=== PATIENT | male | born 1980 ===

== ENCOUNTER 2017-04-06 12:45 | Emergency (ER) | payer SELFPAY ==
[2017-04-06 12:55] VITALS: BP 108/71; PULSE 80; RESP 18; TEMP 98; O2SAT 100
--- NOTE | 2017-04-06 13:09 | ED PDOC ---
HPI: Back Time Seen by Provider: 04/06/17 12:49 Chief Complaint (Nursing): Back Pain Chief Complaint (Provider): Back Pain History Per: Patient History/Exam Limitations: no limitations Current Symptoms Are (Timing): Still Present Additional Complaint(s): Shaan Woodard, a 36 year old male, presents to the ED complaining of back pain. The patient states that he was lifting something up a flight of stairs when the pain began. He states that the pain is centralized and radiates down his left leg. Past Medical History Reviewed: Historical Data, Nursing Documentation, Vital Signs Vital Signs: Last Vital Signs Temp 98 F 04/06/17 12:52 Pulse 80 04/06/17 12:52 Resp 18 04/06/17 12:52 BP 108/71 04/06/17 12:52 Pulse Ox 100 04/06/17 12:52 - Medical History PMH: No Chronic Diseases - Surgical History Surgical History: No Surg Hx - Family History Family History: States: Unknown Family Hx - Social History Current smoker - smoking cessation education provided: No Alcohol: Social Drugs: Denies - Home Medications Home Medications: Ambulatory Orders Medication Instructions Recorded Cyclobenzaprine [Cyclobenzaprine 10 mg PO Q8H #20 tab 04/06/17 HCl] Ibuprofen [Motrin Tab] 800 mg PO Q6H PRN #20 tab 04/06/17 - Allergies Allergies/Adverse Reactions: Allergies Allergy/AdvReac Type Severity Reaction Status Date / Time No Known Allergies Allergy Verified 04/06/17 12:52 Review of Systems Musculoskeletal: Positive for: Back Pain (Back pain radiating down left leg.) Physical Exam - Reviewed Nursing Documentation Reviewed: Yes Vital Signs Reviewed: Yes - Physical Exam Appears: Positive for: Non-toxic, No Acute Distress Head Exam: Positive for: NORMAL INSPECTION Skin: Positive for: Normal Color, Warm, Dry Eye Exam: Positive for: Normal appearance, EOMI, PERRL Cardiovascular/Chest: Positive for: Regular Rate, Rhythm, Chest Non Tender. Negative for: Tachycardia Respiratory: Positive for: Normal Breath Sounds. Negative for: Wheezing, Respiratory Distress Back: Negative for: Vertebral Tenderness (no midline tenderness) Neurologic/Psych: Positive for: Alert, Oriented, Gait - ECG O2 Sat by Pulse Oximetry: 100 (RA) Pulse Ox Interpretation: Normal Medical Decision Making Medical Decision Makin Initial Impression: 36 year old male presenting with back pack radiating down left leg Initial Plan: * Flexeril 10mg PO * Toradol 60mg IM * Reevaluation Pt reports feeling better on re-evaluation. X-ray without acute abnormalities, height and spacing maintained. Scribe Attestation Documented by Laura Ramsey acting as a scribe for Minnie Bonner PA-C. Scribe Attestation All medical record entries made by the Scribe were at my direction and personally dictated by me. I have reviewed the chart and agree that the record accurately reflects my personal performance of the history, physical exam, medical decision making, and the department course for this patient. I have also personally directed, reviewed, and agree with the discharge instructions and disposition. Disposition - Clinical Impression Clinical Impression: Back pain - Patient ED Disposition Is Patient to be Admitted: No Counseled Patient/Family Regarding: Diagnosis, Need For Followup, Rx Given - Disposition Referrals: [facility] [Outside] Disposition: Routine/Home Disposition Time: 14:23 Condition: GOOD Prescriptions: Cyclobenzaprine [Cyclobenzaprine HCl] 10 mg PO Q8H #20 tab Ibuprofen [Motrin Tab] 800 mg PO Q6H PRN #20 tab PRN Reason: Pain Instructions: Back Pain (ED) Forms: [facility] ED School/Work Excuse
--- NOTE | 2017-04-06 15:14 | RAD ---
PROCEDURE: Radiographs of the Lumbar Spine. HISTORY: Midline pain COMPARISON: No prior. FINDINGS: BONES: There is mild levocurvature in the lumbar spine which could be positional. There is normal alignment of the lumbar vertebral bodies. Lumbar lordosis is maintained. Vertebral bodies are normal in height. Bone mineralization is normal. There is no acute fracture, spondylolysis or spondylolisthesis. DISC SPACES: The disc heights are maintained. OTHER FINDINGS: There are no pathologic soft tissue calcifications. Both sacroiliac joints are normal. There is large amount of stool in the colon. IMPRESSION: 1. No acute fracture, spondylolysis or spondylolisthesis. 2. Constipation.
== END 2017-04-06 14:26 | disposition home or self-care (01) ==
LOC: H.ER 12:45
DX: M54.9 Dorsalgia, unspecified (principal)

== ENCOUNTER 2018-12-22 21:44 | Emergency (ER) | payer OTHER, SELFPAY ==
[2018-12-22 21:53] VITALS: TEMP 98.2
[2018-12-22 22:44] LABS: BASO % 0.3 % (0.0-2.0); EOS # 0.1 K/uL (0.0-0.7); EOS % 1.9 % (0.0-4.0); HEMOGLOBIN 13.8 g/dL (12.0-18.0); LYMPH # 2.5 K/uL (1.0-4.3); LYMPH % 40.7 % (20.0-40.0); MEAN CELL VOLUME 86.7 fl (80.0-94.0); MEAN CORPUSCULAR HEMOGLOBIN 29.6 pg (27.0-31.0); MEAN CORPUSCULAR HGB CONC 34.1 g/dL (33.0-37.0); MEAN PLATELET VOLUME 7.4 fl (7.2-11.7); MONO # 0.5 K/uL (0.0-0.8); MONO % 8.4 % (0.0-10.0); NEUT # 2.9 K/uL (1.8-7.0); NEUT % 48.7 % (50.0-75.0); NRBC % 0.1 % (0.0-0.0); RBC 4.65 Mil/uL (4.40-5.90); RED CELL DISTRIBUTION WIDTH 13.3 % (11.5-14.5)
[2018-12-22 22:54] LABS: ALB/GLOB RATIO 1.4 (1.0-2.1); ALBUMIN 3.9 g/dL (3.5-5.0); ALT/SGPT 33 U/L (21-72); AST/SGOT 24 U/L (17-59); BLOOD UREA NITROGEN 13 mg/dl (9-20); CALCIUM 9.1 mg/dL (8.4-10.2); GFR NON-AFRICAN AMERICAN > 60; LIPASE 62 U/L (23-300)
[2018-12-22] MEDS ORDERED: Sodium Chloride 0.9% 1,000 ML IV STA (22:54)
[2018-12-22] MEDS ORDERED: Iohexol 240 (50 ml) PO ONE (22:54)
[2018-12-23] MEDS ORDERED: Iohexol 240 (50 ml) ONE (00:01)
--- NOTE | 2018-12-23 00:28 | ED PDOC ---
HPI: Abdomen Time Seen by Provider: 12/22/18 22:18 Chief Complaint (Nursing): Abdominal Pain Chief Complaint (Provider): Abdominal Pain History Per: Patient History/Exam Limitations: no limitations Onset/Duration Of Symptoms: Days (3) Additional Complaint(s): 38 y/o male with history of gluten sensitivity and GI issues presents to the ED with abdominal pain, onset x3 days ago. Patient reports that on he at some meatballs at his sisters house; the next day he felt a sense of bloating and abdominal pain. Patient states he took Pepto Bismol with no relief. Patient reports pain is worse today. He denies nausea, vomiting, or diarrhea but states that he feels constipated. Patient reports that his normal bowel movement is about 3 times per day but lately he has only be able to go once and reports it was a very small amount. Past Medical History Reviewed: Historical Data, Nursing Documentation, Vital Signs Vital Signs: Last Vital Signs Temp 98.2 F 12/22/18 21:51 Pulse 71 12/22/18 21:51 Resp 16 12/22/18 21:51 BP 118/68 12/22/18 21:51 Pulse Ox 97 12/22/18 21:51 - Medical History Other PMH: Gluten sensitivity, GI Issues - Surgical History Surgical History: No Surg Hx - Family History Family History: States: Unknown Family Hx - Social History Current smoker - smoking cessation education provided: No Alcohol: None Drugs: Denies - Home Medications Home Medications: Ambulatory Orders Medication Instructions Recorded Cyclobenzaprine [Cyclobenzaprine 10 mg PO Q8H #20 tab 04/06/17 HCl] Ibuprofen [Motrin Tab] 800 mg PO Q6H PRN #20 tab 04/06/17 Dicyclomine [Bentyl] 20 mg PO Q12 PRN #20 tab 12/23/18 - Allergies Allergies/Adverse Reactions: Allergies Allergy/AdvReac Type Severity Reaction Status Date / Time No Known Allergies Allergy Verified 12/22/18 21:50 Review of Systems ROS Statement: Except As Marked, All Systems Reviewed And Found Negative Gastrointestinal: Positive for: Abdominal Pain, Constipation. Negative for: Nausea, Vomiting, Diarrhea Physical Exam - Reviewed Nursing Documentation Reviewed: Yes Vital Signs Reviewed: Yes - Physical Exam Appears: Positive for: Uncomfortable Head Exam: Positive for: ATRAUMATIC, NORMAL INSPECTION, NORMOCEPHALIC Skin: Positive for: Normal Color, Warm, DRY Eye Exam: Positive for: EOMI, Normal appearance, PERRL ENT: Positive for: Normal ENT Inspection Neck: Positive for: Normal, Painless ROM Cardiovascular/Chest: Positive for: Regular Rate, Rhythm. Negative for: Murmur Respiratory: Positive for: Normal Breath Sounds. Negative for: Respiratory Distress Gastrointestinal/Abdominal: Positive for: Tenderness (mild diffuse) Back: Positive for: Normal Inspection Extremity: Positive for: Normal ROM. Negative for: Pedal Edema, Deformity Neurological/Psych: Positive for: Awake, Alert, Normal Tone. Negative for: Motor/Sensory Deficits - Laboratory Results Result Diagrams: 12/22/18 22:41 12/22/18 22:41 Lab Results: Total Bilirubin 0.4 mg/dl (0.2-1.3) 12/22/18 22:41 AST 24 U/L (17-59) 12/22/18 22:41 ALT 33 U/L (21-72) 12/22/18 22:41 Alkaline Phosphatase 49 U/L (38-126) 12/22/18 22:41 Total Protein 6.8 G/DL (6.3-8.2) 12/22/18 22:41 Albumin 3.9 g/dL (3.5-5.0) 12/22/18 22:41 Globulin 2.9 gm/dL (2.2-3.9) 12/22/18 22:41 Albumin/Globulin Ratio 1.4 (1.0-2.1) 12/22/18 22:41 Lipase 62 U/L (23-300) 12/22/18 22:41 - ECG O2 Sat by Pulse Oximetry: 97 (RA) Pulse Ox Interpretation: Normal Medical Decision Making Medical Decision Making: Time: 22:54 Impression: 38 y/o with abdominal pain Initial Plan: * CT Abdomen Pelvis * Labs * Morphine * IV Fluids * Omnipaque 03:26 CT Abd Pelvis COMMENTS: Uncomplicated colonic diverticulosis. Mild prostatomegaly. The liver is of uniform attenuation without mass or defect. There is no intra or extrahepatic biliary ductal dilatation. The spleen is normal. The gallbladder is within normal limits. The pancreas is of normal contour and attenuation characteristics. There is no evidence of adrenal mass. Both kidneys demonstrate prompt and equal nephrograms. The kidneys are normal in size, shape and configuration. There is no evidence of renal or ureteral mass. No renal or ureteral calculi are identified. There is no hydroureter or hydronephrosis. No evidence for appendicitis. There is no bowel wall thickening. No evidence for small or large bowel obstruction. There is no evidence of abdominal ascites or lymphadenopathy. There is no evidence of intrinsic or extrinsic bladder mass. There is no pelvic ascites or lymphadenopathy. Bilateral basilar subsegmental atelectatic pulmonary changes. Images of the lung bases show no evidence of pleural or parenchymal mass. There are no pleural effusions. The bony structures are free of lytic or blastic lesions. IMPRESSION: No evidence of acute abdominal or pelvic pathology. 03:49 Patient reports improvement of symptoms and is stable for discharge. Patient will follow up with PMD. Diagnosis is abdominal pain. Scribe Attestation: Documented by Magde Tucker, acting as a scribe David Umaña MD Provider Scribe Attestation: All medical record entries made by the Scribe were at my direction and p ersonally dictated by me. I have reviewed the chart and agree that the record accurately reflects my personal performance of the history, physical exam, medical decision making, and the department course for this patient. I have also personally directed, reviewed, and agree with the discharge instructions and disposition Disposition - Clinical Impression Clinical Impression: Abdominal pain - Disposition Referrals: Cipriano Biggs MD [Primary Care Provider] - Disposition: Routine/Home Disposition Time: 03:49 Condition: STABLE Additional Instructions: RAJ GARCIA, thank you for letting us take care of you today. Your provider was Jose Umaña MD and you were treated for ABD PAIN. The emergency medical care you received today was directed at your acute symptoms. If you were prescribed any medication, please fill it and take as directed. It may take several days for your symptoms to resolve. Return to the Emergency Department if your symptoms worsen, do not improve, or if you have any other problems. Please contact your doctor or call one of the physicians/clinics you have been referred to that are listed on the Patient Visit Information form that is i ncluded in your discharge packet. Bring any paperwork you were given at discharge with you along with any medications you are taking to your follow up visit. Our treatment cannot replace ongoing medical care by a primary care provider outside of the emergency department. Thank you for allowing the [facility] team to be part of your care today. If you had an X-Ray or CT scan: A Radiologist will review the ED reading if any change in treatment is needed we will contact you. If you had a blood, urine, or wound culture: It will take several days for the results, if any change in treatment is needed we will contact you. If you had an STI test: It will take 48 hours for the results. Please call after 1 week if you have not heard back. Prescriptions: Dicyclomine [Bentyl] 20 mg PO Q12 PRN #20 tab PRN Reason: abdominal pain/diarrhea Instructions: Acute Abdomen (Belly Pain) Forms: [employer] (Thai) Print Language: BULGARIAN
[2018-12-23 01:37] LABS: URINE BILIRUBIN NEGATIVE (NEGATIVE); URINE BLOOD NEGATIVE (NEGATIVE); URINE CLARITY CLEAR (Clear); URINE COLOR STRAW (YELLOW); URINE GLUCOSE (UA) NEG (NEGATIVE); URINE LEUKOCYTE ESTERASE NEG Leu/uL (Negative); URINE PROTEIN NEGATIVE (NEGATIVE); URINE UROBILINOGEN 0.2-1.0 mg/dL (0.2-1.0)
[2018-12-23] MEDS ORDERED: Iohexol 300 100 ML IJ ONE (01:47)
[2018-12-23] MEDS ORDERED: Sodium Chloride 0.9% 50 ML IV ONE (01:47)
[2018-12-23] MEDS ORDERED: Alum-Mag Hydrox-Simethicone Susp (30 mL) PO ONE (04:46)
[2018-12-23 05:49] VITALS: BP 102/68; PULSE 69; RESP 18; O2SAT 98
--- NOTE | 2018-12-23 08:46 | CARD ---
APPROVED REPORT Date of service: 12/22/2018 EKG Measurement Heart [id number] <Conclusion> Normal sinus rhythm Normal ECG
--- NOTE | 2018-12-23 11:52 | CT ---
Date of service: 12/23/2018 PROCEDURE: CT Abdomen and Pelvis with contrast HISTORY: abd pain COMPARISON: Comparison is made to the previous study dated 12/21/2016 TECHNIQUE: Contrast dose: 90 cc of Omnipaque 300 intravenously. Axial and reformatted coronal and sagittal CT images of the abdomen and pelvis were obtained after IV and oral contrast administration. Radiation dose: Total exam DLP = 348.0 mGy-cm. This CT exam was performed using one or more of the following dose reduction techniques: Automated exposure control, adjustment of the mA and/or kV according to patient size, and/or use of iterative reconstruction technique. FINDINGS: LOWER THORAX: Small linear opacities at lower lobes likely represent scar tissue or atelectasis. LIVER: Mild hepatomegaly is again noted with finding suspicious for hepatic steatosis. The portal vein is patent. GALLBLADDER AND BILE DUCTS: Unremarkable. PANCREAS: Unremarkable. No gross lesion or ductal dilatation. SPLEEN: Unremarkable. ADRENALS: Unremarkable. No mass. KIDNEYS AND URETERS: Unremarkable. No hydronephrosis. No solid mass. VASCULATURE: Unremarkable. No aortic aneurysm. No aortic atherosclerotic calcification or mural plaque present. BOWEL: Mildly dilated small bowel loops demonstrate mild wall thickening noted in the left mid and upper abdomen suspicious for enteritis. Mild constipation noted. No evidence of high-grade bowel obstruction. Scattered few colonic diverticulosis are noted without evidence of diverticulitis. APPENDIX: Normal appendix. PERITONEUM: Unremarkable. No free fluid. No free air. LYMPH NODES: Unremarkable. No enlarged lymph nodes. BLADDER: Unremarkable. REPRODUCTIVE: The prostate is heterogeneous and enlarged. BONES: No acute fracture. OTHER FINDINGS: None. IMPRESSION: Mildly dilated small bowel loops demonstrate mild wall thickening in the left abdomen suspicious for enteritis. Please correlate clinically. Otherwise no evidence of acute pathology in the abdomen and pelvis. Preliminary report was submitted by [facility].
== END 2018-12-23 04:55 | disposition home or self-care (01) ==
LOC: H.ER 21:44
DX: R10.9 Unspecified abdominal pain (principal)
CPT/HCPCS: 74177; 80053; 81003; 83690; 85025; 93005; 96361; 96374; 96376; 99283; J2270; J7030; Q9966; Q9967